=== PATIENT | female | born 1945 | race Caucasian/White ===

== ENCOUNTER 2024-06-21 05:34 | Emergency (ER) | payer OTHER, SELFPAY ==
[2024-06-21 05:38] VITALS: BP 147/84
[2024-06-21 06:54] VITALS: BP 155/81
[2024-06-21 07:00] VITALS: BP 157/96
[2024-06-21 07:03] VITALS: BP 155/81; BMI 21.6
[2024-06-21 07:30] VITALS: BP 142/84
--- NOTE | 2024-06-21 07:32 | ED.GENMED ---
History of Present Illness
General
Chief Complaint: Fall
Source: patient and spouse
Time Seen by Provider: 06/21/24 06:58
History of Present Illness
History of Present Illness:
79yoF with a history of dementia, hypertension, and hyperlipidemia presenting with her for evaluation after a fall around 4am this morning. Patient was walking to the bathroom this morning and fell. She is unsure what happened but she
believes she tripped. She denies any preceding dizziness. Patient struck the left side of her head and sustained a laceration. She denies any LOC. Patient was able to ambulate after the fall and notified her of the fall. She admits to having
ongoing balance issues but does not use a cane or walker. She currently lives with her at home. She is not on any anticoagulation. Unknown last Tdap.
Past History
Past History
ED Past Medical History: HTN and Hypercholesterolemia
Social History
Tobacco: Non-smoker
Alcohol: None
Drug: None
Personal:
Living: with family
Employment: Other
Family History
Family History: Other
Phy Exam
General Physical Exam
General Presentation: well appearing and no apparent distress
General age: appears stated age
General Skin: warm and dry
General Habitus: normal
General Mental: alert
ENT Exam
ENT Exam: other (Approx 5cm gaping laceration present to the L parietal scalp with small surrounding hematoma. No active bleeding. No cervical spine tenderness but patient reports having soreness in her neck.)
Eye Exam
Eye Exam: PERRL
Pulmonary Exam
Pulmonary Exam: lungs clear, no respiratory distress, no rales, chest non tender and no crackles
Gastrointestinal Exam
Gastrointestinal Exam: non tender, soft and non distended
Neurological Exam
Neurological Exam: alert and no motor deficits
[place] Coma Scale
Eye Opening: Spontaneous
Verbal Response: Oriented
Motor Response: Obeys Commands
GCS Total Score: 15
Skin Exam
Skin Exam: normal color and warm/dry
Psychiatric Exam
Psychiatric Exam: normal mood/affect
Course
Orders/Labs/Results
Orders:
Orders
06/21/24 05:41
CT Head W/o Iv Contrast Urgent
Comment:
Reason For Exam: fell and had head strike
06/21/24 07:31
CT Cervical Spine W/o Iv Contr Urgent
Comment:
Reason For Exam: neck pain, fall
Tetanus/Diphth/Acelpertussis [Adacel] 0.5 ml IM .ONCE ONE
Vital Signs
Initial and Last Documented VS:
Initial Vital Signs
Temp Pulse Resp BP Pulse Ox
97.8 F 71 16 147/84 96
06/21/24 05:38 06/21/24 05:38 06/21/24 05:38 06/21/24 05:38 06/21/24 05:38
Last Documented Vital Signs
Temp Pulse Resp BP Pulse Ox
97.8 F 72 16 142/84 97
06/21/24 05:38 06/21/24 08:00 06/21/24 08:00 06/21/24 07:30 06/21/24 07:30
Procedures
Laceration Closure
Left Scalp:
Status of Wound: clean
Size of Wound in cm: 5
Description of Wound Edges: ragged
Preparation: cleaned with saline
Anesthesia: 1% Lidocaine with epi
Wound exploration: explored to base- no FB
Type of Closure: single layer closure
Skin Closure Material: skin agnes
Number of sutures: 6
MDM/Problems Addressed
Differential Diagnosis Includes:
79yoF here after a fall with head strike. No LOC. Presenting with a scalp laceration. Not on anticoagulation. VSS. She is awake, alert, with no focal neuro deficits. There is a 5cm gaping scalp laceration on exam. No cervical spine tenderness but
patient reports neck soreness. Differential diagnosis includes but is not limited to: laceration, closed head injury, concussion, intracranial hemorrhage, skull fracture
Initial ED plan: CT head obtained prior to assessment. CT head is negative for bleed and skull fracture. Small meningioma seen incidentally which patient and were notified of. Will repair laceration. CT cervical spine and Tdap ordered.
*Critical Care Note
Total Time (30-74mins, 75-104mins- exclusive of procedures): Not Applicable
Update Note
Update Note:
Scalp laceration repaired with agnes as above. CT cervical spine negative for traumatic injuries. Offered PT evaluation during ED stay which patient and decline as has an appointment for chemotherapy later this morning.
does admit that patient has been more unsteady on her feet recently but he feels comfortable with her being at home. Advised f/u with PCP to discuss outpatient PT. Patient advised to have agnes removed in 7-10 days. ED return precautions discussed
including recurrent falls or signs of infection. Patient discharged in stable condition.
ED Attending Note
-
Portions of this chart may have been created with voice recognition software.� Occasional wrong word or��sound alike� substitutions may have occurred due to the inherent limitations of voice recognition software.
Discharge Plan
Departure
Patient Disposition: Home (Routine Discharge)
Date of Disposition: 06/21/24
Time of Disposition: 08:31
Patient with high blood pressure during this ER visit?: Yes
Discharge Problem:
Fall, Laceration of scalp
Instructions: Laceration Repair With [place] (DC)
Prescriptions:
No Action
venlafaxine 75 MG capsule,extended release 24hr
75 mg PO DAILY
atorvastatin 10 MG tablet
20 mg PO QPM
tramadol 50 MG tablet
50 mg PO BID
levothyroxine 75 MCG tablet
75 mcg PO DAILY
lisinopril 10 MG tablet
10 mg PO DAILY
gabapentin 100 MG capsule
300 mg PO BID
omeprazole magnesium [Prilosec] 10 MG susp,delayed release for recon
20 mg PO DAILY
metronidazole 500 MG tablet
500 mg PO TID Qty: 30 0RF
levofloxacin 500 MG tablet
500 mg PO DAILY Qty: 10 0RF
Referrals:
Aubrie Flores, [Family Provider] -
Activity Restrictions/Additional Instructions:
Do not get your laceration wet for the first 24 hours.
The agnes will need to be removed in 7-10 days.
Please follow-up with your family doctor and discuss outpatient physical therapy.
Return to the ER with any worsening symptoms, signs of infection, or with any recurrent falls.
Interventions
Interventions:
*Risk Screen - Suicide Last Done: 06/21/24 05:38
*General Assessment Last Done: 06/21/24 05:38
*Neglect/Abuse Screening Last Done: 06/21/24 07:03
ED- Fall Risk Assessment Last Done: 06/21/24 07:03
*ED COVID-19 Vaccine History Last Done: 06/21/24 05:38
ED-Musculoskeletal Assessment Last Done: 06/21/24 07:03
ED- Neurological Assessment Last Done: 06/21/24 07:03
ED-Skin Assessment Last Done: 06/21/24 07:03
Discharge Date and Time
Print Language: FINNISH
[2024-06-21] MEDS: ADACEL 0.5 ML IM (07:56)
== END 2024-06-21 08:44 | disposition home or self-care (01) ==
LOC: EMR 05:34
PROVIDERS: EMERGENCY PHYSICIAN Emergency Medicine; FAMILY PHYSICIAN Family Medicine
DX: S01.01XA Laceration without foreign body of scalp, initial encounter (principal); W19.XXXA Unspecified fall, initial encounter; E78.00 Pure hypercholesterolemia, unspecified; I10 Essential (primary) hypertension; F03.90 Unspecified dementia, unspecified severity, without behavioral disturbance, psychotic disturbance, mood disturbance, and anxiety; Z23 Encounter for immunization
CPT/HCPCS: 12002; 90471; 99284; 70450; 72125; 90715